=== PATIENT | female | born 1965 | race Caucasian/White ===

== ENCOUNTER → 2018-01-17 | Outpatient (CLI) | payer BC ==
--- NOTE | 2018-01-17 15:13 | KCIC ---
MRI right knee dated 01/17/2018 2:00 PM Indication: Knee pain , instability weakness. Comparison: No comparison is available. Technique: Routine multiplanar multisequence imaging performed. . Findings: There is patchy edema within the marrow of the central proximal tibia . No discrete fracture line. The marrow of the distal femur is within normal limits. Mild tricompartmental hypertrophic change with small marginal osteophytes. Thinning and surface irregularity of the articular cartilage throughout. There is full-thickness cartilage loss at the patellar apex and medial and lateral patellar facet. There is also probable full-thickness cartilage loss of the lateral femoral trochlea. Small joint effusion. No intra-articular loose body. Small popliteal cyst. The anterior cruciate ligament is not clearly identified and may be chronically torn. The PCL is intact. Medial and lateral collateral complexes are intact. Iliotibial band, popliteus tendon and pes anserine complex within normal limits Quadriceps and patellar tendon are intact. There is mild increased signal in the substance of the proximal distal patellar tendon. Mild superficial infrapatellar edema. No abnormality of the medial or lateral retinaculum. There is horizontal oblique signal abnormality in the posterior horn/body of medial meniscus with extension to the tibial articular surface. There is also blunting of the free edge of the posterior horn and body. The lateral meniscus is normal in morphology and signal. IMPRESSION: 1. Complex tear posterior horn/body of medial meniscus. 2. Poor visualization of the anterior cruciate ligament which could be related to chronic full-thickness tear or severe degeneration. Correlate with physical exam findings. 3. Moderate tricompartmental degenerative arthrosis and chondromalacia. There is full-thickness cartilage loss at the anterior compartment. 4. Nonspecific patchy edema within the marrow of the proximal tibia, likely reactive. 5. Mild patellar tendinosis. 6. Small joint effusion. Electronically signed by: Jarett Donohue MD (01/17/2018 3:10 PM) [id number]
== END | disposition home or self-care (01) ==
LOC: KCIC MRI 14:09
PROVIDERS: ATTEND Nurse Practitioner Family
DX: S83.231A Complex tear of medial meniscus, current injury, right knee, initial encounter (principal); M94.261 Chondromalacia, right knee; M17.11 Unilateral primary osteoarthritis, right knee; M76.51 Patellar tendinitis, right knee; X58.XXXA Exposure to other specified factors, initial encounter; Y93.89 Activity, other specified; Y92.89 Other specified places as the place of occurrence of the external cause; Y99.8 Other external cause status
CPT/HCPCS: 73721